=== PATIENT | female | born 1950 | race Hispanic/Latino ===

== ENCOUNTER 2023-09-29 16:07 | Emergency (ER) | payer MEDICARE ==
[~2023-09-29] VITALS: Ht 147.3 cm; Wt 80.7 kg
[~2023-09-29 16:07] MED LIST: ALBU8.5H8 PUFF; AMLO-257 PO; ARIP2TAB20 PO; BUDE0.5A8 IH; CARB-155 PO; CARV25TA PO; FLUO40CA7 PO; FLUT1BLS15 PUFF; GABA600T10 PO; ICOS1CAP2 PO; INSU100V SQ; INSU100V12 SQ; IPRA3AMP24 IH; IRON1CAP32 PO; MELO-108 PO; METF-446 PO; MONT-39 PO; NEBU1KIT3 MC; OLME40TA18 PO; OSEL75 PO; PANT40TA PO; RANO500T3 PO; RASA0.5T2 PO; ROPI4TAB22 PO; ROTI1PAT10 TD
[2023-09-29] MEDS: ONDANSETRON 4MG INJ IVP ONE (17:25)
[2023-09-29] MEDS: 0.9% NACL 500ML IV.SOLN 500 ML IV ONE (17:27)
[2023-09-29 17:32] LABS: BASOPHILS # (AUTO) 0.02 K/uL (0.00-0.20); BASOPHILS % (AUTO) 0.2 % (0.0-5.0); EOSINOPHILS # (AUTO) 0.21 K/uL (0.00-0.70); EOSINOPHILS % (AUTO) 2.1 % (0.0-8.0); HEMATOCRIT 30.7 % (36-48); IMMATURE GRANULOCYTE ABSOLUTE 0.03 K/uL (0-1); LYMPHOCYTES # (AUTO) 1.7 K/uL (1.0-4.8); LYMPHOCYTES % (AUTO) 17.3 % (21.0-51.0); MEAN CORPUSCULAR HEMOGLOBIN 32.1 pg (27.0-33.0); MEAN CORPUSCULAR HGB CONC 33.6 g/dL (32.0-36.0); MEAN CORPUSCULAR VOLUME 95.6 fL (79-99); MONOCYTES # (AUTO) 0.6 K/uL (0.1-1.0); MONOCYTES % (AUTO) 5.9 % (3.0-13.0); NEUTROPHILS # (AUTO) 7.3 K/uL (1.8-7.7); NEUTROPHILS % (AUTO) 74.2 % (40.0-77.0); PLATELET COUNT (AUTO) 242 K/uL (130-400); RED BLOOD CELL COUNT(AUTO) 3.21 MIL/uL (4.00-5.50); RED CELL DISTRIBUTION WIDTH 13.7 % (11.0-15.5); WHITE BLOOD COUNT (AUTO) 9.9 K/uL (4.8-10.8)
[2023-09-29 17:38] LABS: CREATININE 1.5 mg/dL (0.5-1.0); POTASSIUM 4.9 mmol/L (3.5-5.1)
[2023-09-29 17:42] LABS: ALBUMIN 3.3 g/dL (3.5-5.0); BILIRUBIN,DIRECT 0.1 mg/dL (0.0-0.3); BILIRUBIN,TOTAL 0.3 mg/dL (0.2-1.0)
[2023-09-29 18:12] LABS: B-TYPE NATRIURETIC PEPTIDE 102 pg/mL (0-100)
[2023-09-29 19:04] LABS: APPEARANCE,URINE CLOUDY (CLEAR); BILIRUBIN,URINE NEGATIVE (NEGATIVE); COLOR,URINE YELLOW (YELLOW); GLUCOSE, URINE (UA) NEGATIVE (NEGATIVE); KETONES,URINE NEGATIVE (NEGATIVE); LEUKOCYTE ESTERASE ,URINE 250 Leu/uL (NEGATIVE); NITRATE,URINE NEGATIVE (NEGATIVE); OCCULT BLOOD,URINE NEGATIVE (NEGATIVE); PROTEIN,URINE 10 mg/dL (NEGATIVE); UROBILINOGEN,URINE 0.2 mg/dL (0.2-1.0)
[2023-09-29] MEDS ORDERED: MECL-302 PO (19:08)
[2023-09-29 19:09] LABS: ADD UA MICROSCOPIC YES
[2023-09-29 19:12] LABS: BACTERIA,URINE RARE /HPF (None Seen); MUCUS,URINE RARE LPF (None Seen); SQUAMOUS EPITHELIAL CELL,UR FEW /HPF (0-2)
[2023-09-29 19:24] VITALS: BP 122/54; PULSE 80; RESP 18; O2SAT 100
== END 2023-09-29 19:27 | disposition home or self-care (01) ==
LOC: EDH 16:07
DX: R42 Dizziness and giddiness (principal); E86.0 Dehydration; R10.9 Unspecified abdominal pain; M54.2 Cervicalgia; E11.9 Type 2 diabetes mellitus without complications; I10 Essential (primary) hypertension; J44.9 Chronic obstructive pulmonary disease, unspecified; G20.A1 Parkinson's disease without dyskinesia, without mention of fluctuations; Z91.041 Radiographic dye allergy status; Z79.899 Other long term (current) drug therapy; Z79.4 Long term (current) use of insulin; Z98.890 Other specified postprocedural states
CPT/HCPCS: 99285; 96374; 71045; 80076; 84484; 80048; 83880; 85025; 87088; 81001; 36415; 93005; J7040; J2405

== ENCOUNTER 2024-09-12 03:57 | Emergency (ER) | payer OTHER, MEDICARE ==
[~2024-09-12] VITALS: Ht 147.3 cm; Wt 80.7 kg
[~2024-09-12 03:57] MED LIST changes: -ARIP2TAB20 PO; +ARIP2TAB66 PO; +GABA-1405 PO; -GABA600T10 PO; +MECL-302 PO
--- NOTE | 2024-09-12 04:46 | ERN ---
General Chief Complaint: Shortness of Breath Stated Complaint: C/O COUGH,SOB,BACK PAIN, CHEST TIGHTNESS Time Seen by MD: 04:38 History of Present Illness Initial Comments Patient is a 74-year-old female with multiple medical problems including COPD CHF diabetes mellitus asthma irritable bowel disease and chronic kidney disease who comes in with two days of cough, shortness of breath, back pain, chest tightness, and posterior neck tightness. She has no fever no chills no nausea vomiting diarrhea. She feels she does not have a urinary tract infection. The symptoms are preventing her from sleeping and so she comes to the emergency room for help and to rule out COVID. Allergies: Coded Allergies: Iodine (Verified Allergy, RASH, PEELS, 09/27/11) TOPICAL/IV IODINE Home Meds Active Scripts Meclizine HCl (Meclizine HCl) 25 Mg Tablet, 25 MG PO TID for vertigo for 10 Days, #30 TAB 0 Refills Prov:DOMINGO MICHAEL MD 09/29/23 Budesonide (Pulmicort 0.5 mg/2Ml) 0.5 Mg/2 Ml Inh, 0.5 MG IH BID for 15 Days, #30 INH 3 Refills Prov:WILLIAM ARANDA Jr., MD 11/27/21 Pantoprazole Sodium (Protonix) 40 Mg Tablet.dr, 40 MG PO BID for 90 Days, #180 TAB Prov:WILLIAM ARANDA Jr., MD 11/27/21 Oseltamivir Phosphate (Tamiflu) 75 Mg Cap, 75 MG PO BIDAC for 3 Days, #6 CAP Prov:WILLIAM ARANDA Jr., MD 11/27/21 Ipratropium/Albuterol Sulfate (Iprat-Albut 0.5-3(2.5) mg/3 ml) 3 Ml Ampul.neb, 1 UDVIAL IH [id number] PRN for SHORTNESS OF BREATH/WHEEZING for 15 Days, #60 AMP 1 Refill Prov:WILLIAM ARANDA Jr., MD 11/27/21 Nebulizer (Compact Compressor Nebulizer) 1 Each Each, EACH MC QID PRN for SHORTNESS OF BREATH/WHEEZING, #1 Prov:WILLIAM ARANDA Jr., MD 11/27/21 Reported Medications Insulin Lispro (Humalog) 100 Unit/1 Ml Vial, 12 UNITS SQ TID, VIAL 11/25/21 Fluticasone/Umeclidin/Vilanter (Trelegy Ellipta 200-62.5-25) 1 Each Blst.w.dev, 1 EACH PUFF DAILY 11/25/21 Ropinirole HCl (Ropinirole HCl) 4 Mg Tab.er.24h, 4 MG PO TID, TAB 11/25/21 Rasagiline Mesylate (Rasagiline Mesylate) 0.5 Mg Tablet, 0.5 MG PO DAILY, TAB 11/25/21 Ranolazine (Ranexa) 500 Mg Tab.er.12h, 500 MG PO BID, TAB 11/25/21 Olmesartan Medoxomil (Olmesartan Medoxomil) 40 Mg Tablet, 40 MG PO DAILY, TAB 11/25/21 Rotigotine (Neupro) 1 Each Patch.td24, 1 EACH TD DAILY 11/25/21 Montelukast Sodium (Montelukast Sodium) 10 Mg Tablet, 10 MG PO HS, TAB 11/25/21 Metformin HCl (Metformin HCl) 1,000 Mg Tablet, 1000 MG PO BID, TAB 11/25/21 Meloxicam (Meloxicam) 15 Mg Tablet, 15 MG PO AD, TAB 11/25/21 Insulin Detemir (Levemir) 100 Unit/1 Ml Vial, 35 UNIT SQ DAILY, VIAL 11/25/21 Iron Fum & P/FA/Vit B & C No.9 (Integra Plus Capsule) 1 Each Capsule, 1 EACH PO HS, CAP 11/25/21 Icosapent Ethyl (Icosapent Ethyl) 1 Gm Capsule, 1 GM PO BID, CAP 11/25/21 Gabapentin (Gabapentin) 600 Mg Tablet, 600 MG PO TID, TAB 11/25/21 Fluoxetine HCl (Prozac) 40 Mg Capsule, 40 MG PO NOON, CAP 11/25/21 Carvedilol (Carvedilol) 25 Mg Tablet, 25 MG PO BID, TAB 11/25/21 Carbidopa/Levodopa/Entacapone (Vyxahqlyf-Cbcbszsg-Nkie 150 mg) 1 Each Tablet, 1 EACH PO TID, TAB 11/25/21 Albuterol Sulfate (Proair Hfa) 8.5 Gm Hfa.aer.ad, 1 GM PUFF AD 11/25/21 Aripiprazole (Aripiprazole) 2 Mg Tablet, 2 MG PO NOON, TAB 11/25/21 Amlodipine Besylate (Amlodipine Besylate) 5 Mg Tablet, 5 MG PO HS, TAB 11/25/21 Past Medical History Past Medical History: Arthritis, COPD, Diabetes-Type II, Heart Disease, Hypertension, IBS, Other Medical History Other: HX OF PARKINSON'S, GASTRITIS Past Surgical History: Cholecystectomy Surgical History Other: RT SHOULDER SX Social History Social History: Negative, Lives with family Constitutional: (-) chills, (-) diaphoresis, (-) fever, (-) malaise, (-) weakness, (-) other documentation EENTM: (-) eye pain, (-) blurred vision, (-) tearing, (-) double vision, (-) ear pain, (-) ear discharge, (-) nose pain, (-) nose congestion, (-) throat pain, (-) Throat swelling, (-) mouth pain, (-) tooth pain, (-) mouth swelling, (-) other documentation Respiratory: (+) cough, (+) short of breath Cardiovascular: (+) chest pain, (+) dyspnea on exertion Gastrointestinal/Abdominal: (-) nausea, (-) vomiting, (-) diarrhea, (-) abdominal pain, (-) abdominal distention, (-) constipation, (-) rectal bleeding, (-) dark stool/melena, (-) other documentation Genitourinary: (-) vaginal discharge, (-) vaginal bleeding, (-) dysuria, (-) frequency, (-) hematuria, (-) pain, (-) other documentation Musculoskeletal: (+) Neck pain, (+) back pain, (+) Flank Pain Skin: (-) laceration, (-) contusion, (-) abrasion, (-) abscess, (-) rash, (-) change in color, (-) change in hair, (-) change in nails, (-) diaphoresis, (-) dryness, (-) other documentation Neuro: (-) altered mental status, (-) headache, (-) syncope, (-) paralysis, (-) numbness, (-) seizure, (-) pre-existing deficit, (-) tremors, (-) weakness, (-) dizziness, (-) slurred speech, (-) vertigo, (-) other documentation Physical Exam General Appearance: (+) mild distress Orientation: (+) oriented x 3 Head/Face Trauma: No Eye: bilateral eye normal inspection, bilateral eye PERRL, bilateral eye EOMI Ear, Nose, Throat: (+) hearing grossly normal, (+) normal ENT inspection, (+) moist mucous membraine Neck: (+) normal inspection, (+) supple, (+) full range of motion Respiratory: (+) chest non-tender, (+) lungs clear, (+) well ventilated Respiratory Comment Breath sounds equal bilaterally and clear. No rales no rhonchi eyes and no wheezing Heart: (+) regular, (+) no gallop Vascular: (+) no edema, (+) normal peripheral pulse Gastrointestinal: (+) soft, (+) non-tender, (+) bowel sound present Results Laboratory and Microbiology Lab and Micro Result Laboratory Tests Test 09/12/24 05:00 White Blood Count 6.3 K/uL (4.8-10.8) Red Blood Count 3.36 MIL/uL (4.00-5.50) L Hemoglobin 10.7 g/dL (12.0-16.0) L Hematocrit 31.6 % (36-48) L Mean Corpuscular Volume 94.0 fL (79-99) Mean Corpuscular Hemoglobin 31.8 pg (27.0-33.0) Mean Corpuscular Hemoglobin Concent 33.9 g/dL (32.0-36.0) Red Cell Distribution Width 13.2 % (11.0-15.5) Platelet Count 169 K/uL (130-400) Mean Platelet Volume 10.0 fL (7.5-10.5) Immature Granulocyte % (Auto) 0.3 % (0-1) Neutrophils (%) (Auto) 70.8 % (40.0-77.0) Lymphocytes (%) (Auto) 17.2 % (21.0-51.0) L Monocytes (%) (Auto) 10.0 % (3.0-13.0) Eosinophils (%) (Auto) 1.4 % (0.0-8.0) Basophils (%) (Auto) 0.3 % (0.0-5.0) Neutrophils # (Auto) 4.5 K/uL (1.8-7.7) Lymphocytes # (Auto) 1.1 K/uL (1.0-4.8) Monocytes # (Auto) 0.6 K/uL (0.1-1.0) Eosinophils # (Auto) 0.09 K/uL (0.00-0.70) Basophils # (Auto) 0.02 K/uL (0.00-0.20) Absolute Immature Granulocyte (auto 0.02 K/uL (0-1) Nucleated Red Blood Cells 0.0 % (0.0-0.19) Sodium Level 139 mmol/L (136-145) Potassium Level 4.2 mmol/L (3.5-5.1) Chloride Level 100 mmol/L (101-111) L Carbon Dioxide Level 31 mmol/L (21-32) Blood Urea Nitrogen 36 mg/dL (7-18) H Creatinine 1.4 mg/dL (0.5-1.0) H Glomerular Filtration Rate Calc 40 mL/min (>90) Random Glucose 151 mg/dL (70-105) H Total Calcium 8.7 mg/dL (8.5-10.1) B-Type Natriuretic Peptide 28 pg/mL (0-100) Procalcitonin < 0.05 ng/mL (0.05-0.5) L Influenza Type A Antigen Negative For Type A Influenza Type B Antigen Negative For Type B SARS-CoV-2 Antigen (Rapid) PRESUMPTIVE NEGATIVE Group A Streptococcus Rapid negative (NEGATIVE) MDM Patient clearly has a cough and quite possibly an upper respiratory tract infection. The tightness in her chest could be from an upper respiratory tract infection it could be from her asthma or her COPD or her CHF. I will get a chest x-ray, CBC, chemistry panel, BNP, nasal swabs. Patient also needs a UA. For her symptoms I will give her muscle relaxant and a little bit of fluid. Patient's laboratory studies show a normal white count, her cardiac enzymes are negative her chest x-ray is negative her O2 sats are 99-100% on room air. Serum procalcitonin level is also normal. Patient is relieved that she does not have any cardiac complications causing her chest tightness and would like to go home. ED Course Orders Procedure Category Date Status Time 12 Lead Ekg Tracing- EKG 09/12/24 Logged Technical 04:47 B-Type Natriuretic LAB 09/12/24 Complete Peptide 04:47 Basic Metabolic Panel LAB 09/12/24 Complete 04:47 Cbc With Differential LAB 09/12/24 Complete 04:47 Rapid (Group A Strep) LAB 09/12/24 Complete 04:47 Urinalysis Profile LAB 09/12/24 Logged 04:47 Procalcitonin LAB 09/12/24 Complete 04:47 Chest 1vw RAD 09/12/24 Taken 04:47 Influenza Type A & B, LAB 09/12/24 Complete Rapid 04:47 Covid19 (Sars Antigen LAB 09/12/24 Complete Rapid) 04:47 Cyclobenzaprine Hcl PHA 09/12/24 Complete (Cyclobenzaprine Hcl 05:00 Lactated Ringers PHA 09/12/24 In Process 1000ml (Lactated 05:00 Current Medications Medications (Trade) Dose Ordered Sig/Ambika Route PRN Reason Start Time Stop Time Status Last Admin Dose Admin Cyclobenzaprine HCl (Cyclobenzaprine HCl) 10 mg ONCE ONCE PO 09/12/24 05:00 09/12/24 05:01 DC 09/12/24 05:35 Lactated Ringer's (Lactated Ringers 1000ml) 1,000 ml ONCE IV 09/12/24 05:00 10/12/24 04:59 09/12/24 05:34 Vital Signs Date Time Temp Pulse Resp B/P (MAP) Pulse Ox O2 Delivery O2 Flow Rate FiO2 09/12/24 04:33 95 18 105/50 100 Room Air* 0 21 09/12/24 03:59 98.8 101 20 115/71 95 Room Air DX & DISP Disposition: Discharge Departure Impression: Primary Impression: URTI (acute upper respiratory infection) Condition: Stable Additional Instructions: You have most likely a viral infection of some kind causing your symptoms. Based on oxygen saturation and physical exam I do not think your COPD has been exacerbated. Nor has your asthma. You do not need antibiotics. You can continue to treat your cough with [id number] medications. Please continue your inhalers for your asthma. If your symptoms do not improve in the next week please see your primary care physician or return to the emergency room. Referrals: BORIS GLASGOW MD (PCP) RICH REBOLLEDO MD September 12, 2024 04:46
[2024-09-12 05:10] LABS: BASOPHILS # (AUTO) 0.02 K/uL (0.00-0.20); BASOPHILS % (AUTO) 0.3 % (0.0-5.0); EOSINOPHILS # (AUTO) 0.09 K/uL (0.00-0.70); EOSINOPHILS % (AUTO) 1.4 % (0.0-8.0); HEMATOCRIT 31.6 % (36-48); IMMATURE GRANULOCYTE ABSOLUTE 0.02 K/uL (0-1); LYMPHOCYTES # (AUTO) 1.1 K/uL (1.0-4.8); LYMPHOCYTES % (AUTO) 17.2 % (21.0-51.0); MEAN CORPUSCULAR HEMOGLOBIN 31.8 pg (27.0-33.0); MEAN CORPUSCULAR HGB CONC 33.9 g/dL (32.0-36.0); MONOCYTES # (AUTO) 0.6 K/uL (0.1-1.0); NEUTROPHILS # (AUTO) 4.5 K/uL (1.8-7.7); NEUTROPHILS % (AUTO) 70.8 % (40.0-77.0); PLATELET COUNT (AUTO) 169 K/uL (130-400); RED BLOOD CELL COUNT(AUTO) 3.36 MIL/uL (4.00-5.50); RED CELL DISTRIBUTION WIDTH 13.2 % (11.0-15.5); WHITE BLOOD COUNT (AUTO) 6.3 K/uL (4.8-10.8)
[2024-09-12 05:26] LABS: RAPID GROUP A STREP negative (NEGATIVE)
[2024-09-12 05:32] LABS: B-TYPE NATRIURETIC PEPTIDE 28 pg/mL (0-100)
[2024-09-12] MEDS: LACTATED RINGERS 1000ML IV SCH (05:34)
[2024-09-12 05:35] LABS: COVID19 (SARS ANTIGEN RAPID) PRESUMPTIVE NEGATIVE (NEGATIVE); INFLUENZA TYPE A Negative For Type A (NEGATIVE); INFLUENZA TYPE B Negative For Type B (NEGATIVE)
[2024-09-12] MEDS: CYCLOBENZAPRINE HCL 10 MG TABLET PO ONE (05:35)
[2024-09-12 05:37] LABS: CREATININE 1.4 mg/dL (0.5-1.0); POTASSIUM 4.2 mmol/L (3.5-5.1)
[2024-09-12 05:55] VITALS: BP 125/58; PULSE 85; RESP 17; TEMP 98.3; O2SAT 96
--- NOTE | 2024-09-12 07:00 | EKG ---
[facility] Test Date: 2024-09-12 Test Time: 05:41:40 Pat Name: ALVINO PETERSEN Department: ED Room: Gender: F [employer]: [id number] : 1950 Requested By: RICH REBOLLEDO Order Number: [id number] Reading MD: Alex Mcclelland Measurements Intervals [place] Rate: 86 P: 63 NH: 144 QRS: -2 QRSD: 147 T: 132 QT: 415 QTc: 497 Interpretive Statements Sinus rhythm Left bundle branch block ST elevation secondary to IVCD Compared to ECG 09/29/2023 17:16:45 Intraventricular conduction delay now present ST (T wave) deviation now present Electronically Signed On 09-13-2024 15:42:31 CDT by Alex Mcclelland Please click the below link to view image of tracing.
--- NOTE | 2024-09-12 09:05 | HMCIMG ---
CHEST 1VW HISTORY: Fall COMPARISON: 09/29/2023 FINDINGS: A frontal projection of the chest was obtained. No acute pulmonary infiltrates is seen. The heart is normal in size. Prominent interstitial markings are seen. No evidence of aortic calcification is seen. IMPRESSION: 1. No acute pulmonary infiltrate is seen.
== END 2024-09-12 06:03 | disposition home or self-care (01) ==
LOC: EDH 03:57
DX: I13.0 Hypertensive heart and chronic kidney disease with heart failure and stage 1 through stage 4 chronic kidney disease, or unspecified chronic kidney disease (principal); E11.22 Type 2 diabetes mellitus with diabetic chronic kidney disease; N18.9 Chronic kidney disease, unspecified; I50.9 Heart failure, unspecified; J44.89 Other specified chronic obstructive pulmonary disease; J06.9 Acute upper respiratory infection, unspecified; M19.90 Unspecified osteoarthritis, unspecified site; Z79.4 Long term (current) use of insulin; Z79.51 Long term (current) use of inhaled steroids; Z79.84 Long term (current) use of oral hypoglycemic drugs; Z79.899 Other long term (current) drug therapy; Z88.8 Allergy status to other drugs, medicaments and biological substances; Z91.041 Radiographic dye allergy status; Z20.822 Contact with and (suspected) exposure to COVID-19
CPT/HCPCS: 99285; 71045; 87426; 80048; 83880; 85025; 87880; 87804 ×2; 36415; 93005; 84145; J7120

== ENCOUNTER 2025-01-26 21:23 | Emergency (ER) | payer OTHER, MEDICAID ==
[~2025-01-26] VITALS: Ht 147.3 cm; Wt 79.8 kg
[2025-01-26] MEDS: LIDOCAINE 5% TOPICAL PATCH TP ONE (22:04)
--- NOTE | 2025-01-26 22:41 | ERN ---
ED Note History of Present Illness Stated Complaint: LEFT LEG PAIN Chief Complaint: Lower Extremity Pain/Injury Time Seen by MD: 21:24 Time Seen by Midlevel: 21:25 Dictation: 74-year-old female presents to the emergency department due to reported having pain to the left lower back that radiates down the left lower leg that has been going on for the past 2 years. The patient states that she has been seen by her PCP and has been managed along with pending referral for a specialist. As per the patient, there is no report of having any loss of bowel or bladder. She states the pain feels like an achy type of sensation. Upon initial evaluation, the patient presents with a normal neurological examination to both lower extremities. 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neb, 1 UDVIAL IH [id number] PRN for SHORTNESS OF BREATH/WHEEZING for 15 Days, #60 AMP 1 Refill Prov:WILLIAM ARANDA Jr., MD 11/27/21 Nebulizer (Compact Compressor Nebulizer) 1 Each Each, EACH MC QID PRN for SHORTNESS OF BREATH/WHEEZING, #1 Prov:WILLIAM ARANDA Jr., MD 11/27/21 Reported Medications Insulin Lispro (Humalog) 100 Unit/1 Ml Vial, 12 UNITS SQ TID, VIAL 11/25/21 Fluticasone/Umeclidin/Vilanter (Trelegy Ellipta 200-62.5-25) 1 Each Blst.w.dev, 1 EACH PUFF DAILY 11/25/21 Ropinirole HCl (Ropinirole HCl) 4 Mg Tab.er.24h, 4 MG PO TID, TAB 11/25/21 Rasagiline Mesylate (Rasagiline Mesylate) 0.5 Mg Tablet, 0.5 MG PO DAILY, TAB 11/25/21 Ranolazine (Ranexa) 500 Mg Tab.er.12h, 500 MG PO BID, TAB 11/25/21 Olmesartan Medoxomil (Olmesartan Medoxomil) 40 Mg Tablet, 40 MG PO DAILY, TAB 11/25/21 Rotigotine (Neupro) 1 Each Patch.td24, 1 EACH TD DAILY 11/25/21 Montelukast Sodium (Montelukast Sodium) 10 Mg Tablet, 10 MG PO HS, TAB 11/25/21 Metformin HCl (Metformin HCl) 1,000 Mg Tablet, 1000 MG PO BID, TAB 11/25/21 Meloxicam (Meloxicam) 15 Mg Tablet, 15 MG PO AD, TAB 11/25/21 Insulin Detemir (Levemir) 100 Unit/1 Ml Vial, 35 UNIT SQ DAILY, VIAL 11/25/21 Iron Fum & P/FA/Vit B & C No.9 (Integra Plus Capsule) 1 Each Capsule, 1 EACH PO HS, CAP 11/25/21 Icosapent Ethyl (Icosapent Ethyl) 1 Gm Capsule, 1 GM PO BID, CAP 11/25/21 Gabapentin (Gabapentin) 600 Mg Tablet, 600 MG PO TID, TAB 11/25/21 Fluoxetine HCl (Prozac) 40 Mg Capsule, 40 MG PO NOON, CAP 11/25/21 Carvedilol (Carvedilol) 25 Mg Tablet, 25 MG PO BID, TAB 11/25/21 Carbidopa/Levodopa/Entacapone (Dzcrqlzzu-Zpncxabm-Kzjp 150 mg) 1 Each Tablet, 1 EACH PO TID, TAB 11/25/21 Albuterol Sulfate (Proair Hfa) 8.5 Gm Hfa.aer.ad, 1 GM PUFF AD 11/25/21 Aripiprazole (Aripiprazole) 2 Mg Tablet, 2 MG PO NOON, TAB 11/25/21 Amlodipine Besylate (Amlodipine Besylate) 5 Mg Tablet, 5 MG PO HS, TAB 11/25/21 Past Medical History Past Medical History: Arthritis, COPD, Diabetes-Type II, High Cholesterol, Heart Disease, Hypertension, IBS, Other Additional Past Medical Hx: HX OF PARKINSON'S, GASTRITIS Surgical History: Cholecystectomy Surgical History Other: RT SHOULDER SX, ECTOPIC PSYCH History: no pertinent psych hx Social History: Negative, Lives with family History: Not Applicable RN Note Reviewed/Agreed w/PFSH: Yes Review of System Dictation Back: Left lower back pain Initial Vital Sign VS Vital Signs Date Time Temp Pulse Resp B/P (MAP) Pulse Ox O2 Delivery O2 Flow Rate FiO2 01/26/25 21:24 97.9 88 16 124/64 99 Room Air 01/26/25 21:30 0 21 Physical Exam Dictation General: awake, alert, NAD Head/Face: Normocephalic, atraumatic Eyes: PERRL, EOMI ENT: Oral mucosa moist Neck: Trachea midline, supple Cardiovascular: RRR, no edema Respiratory: Symmetrical, non-labored Abdomen: Soft, non-tender, non-distended, no guarding. Skin: Warm, dry, good turgor, no rash MS/Extremity: Pulses equal, no cyanosis, neurovascular intact, FROM Back: Left lower back tenderness Neuro: COAx4, GCS 15, steady gait, Psych: Normal behavior, mood, and affect normal ED Course ED Course Orders Procedure Category Date Status Time Dexamethasone 4mg/Ml PHA 01/26/25 Complete 1ml Vial (Dexametha 21:30 Lidocaine (Lidoderm PHA 01/26/25 Complete Patch 5%) 21:30 Acetaminophen 500mg PHA 01/26/25 Complete Tab (Tylenol 500mg T 21:30 Current Medications Medications (Trade) Dose Ordered Sig/Ambika Route PRN Reason Start Time Stop Time Status Last Admin Dose Admin Acetaminophen (TYLenol 500MG TAB) 1,000 mg ONCE ONCE PO 01/26/25 21:30 01/26/25 21:38 DC Dexamethasone Sodium Phosphate (dexaMETHasone 4MG/ML 1ML VIAL) 6 mg ONCE ONCE IM 01/26/25 21:30 01/26/25 21:38 DC 01/26/25 22:04 Lidocaine (Lidoderm Patch 5%) 1 patch ONCE ONCE TP 01/26/25 21:30 01/26/25 21:38 DC 01/26/25 22:04 Vital Signs Date Time Temp Pulse Resp B/P (MAP) Pulse Ox O2 Delivery O2 Flow Rate FiO2 01/26/25 21:30 98.4 80 18 126/71 98 Room Air* 0 21 01/26/25 21:24 97.9 88 16 124/64 99 Room Air Medical Decision Making MDM MDM: Differential diagnosis: Chronic back pain, sciatica. Rationale: Tests considered and ordered secondary to shared decision making include: Previous outside records reviewed: Old ER visits. Risk of complication and/or morbidity or mortality of patient management: None Medications-Per medication reconciliation Need for hospitalization: Patient does not meet criteria for hospitalization. Need for emergency major/minor surgery: No There are no social concerns with this patient. Prescription drug management Prescriptions will include symptomatic care Patient's prior external medical records from other ER visits were reviewed by me as indicated. Prior testing and results from previous visits were reviewed. Prior tests were taken into account with medical decision making and resource utilization, independent historian/historians were used to obtain complete medical history. I independently interpreted the test that were performed, results were reviewed by me and considered findings on radiology if ordered. Medical management and examination interpretation discussions were had by me with other qualified healthcare professionals as indicated for the patient's care. DX & DISP Disposition: Discharge Departure Impression: Primary Impression: Back pain with left-sided sciatica Condition: Stable Referrals: BORIS GLASGOW MD (PCP) Time of Disposition: 22:40 WILLIAM ALFRED Jan 26, 2025 22:41
[2025-01-26 22:55] VITALS: BP 121/68; PULSE 75; RESP 18; TEMP 98.1; O2SAT 98
== END 2025-01-26 22:56 | disposition home or self-care (01) ==
LOC: EDH 21:23
DX: M54.32 Sciatica, left side (principal); I11.9 Hypertensive heart disease without heart failure; J44.9 Chronic obstructive pulmonary disease, unspecified; M19.90 Unspecified osteoarthritis, unspecified site; E11.9 Type 2 diabetes mellitus without complications; E78.00 Pure hypercholesterolemia, unspecified; Z79.4 Long term (current) use of insulin; Z79.51 Long term (current) use of inhaled steroids; Z79.84 Long term (current) use of oral hypoglycemic drugs; Z79.899 Other long term (current) drug therapy; Z88.8 Allergy status to other drugs, medicaments and biological substances; Z90.49 Acquired absence of other specified parts of digestive tract
CPT/HCPCS: 99284; 96372; J1100; 99283